=== PATIENT | male | born 1950 | race Two or more races ===

== ENCOUNTER 2019-05-07 01:07 | Inpatient (IN) | payer MEDICARE ==
[~2019-05-07] VITALS: Ht 162.6 cm; Wt 70.9 kg
[2019-05-07] MEDS ORDERED: IV 1/2NS 1000 ML 1,000 ML IV PRN (01:13)
--- NOTE | 2019-05-07 01:15 | NUR ---
CLINICAL MARKETING MANAGER NOTE PT ARRIVED TO FLOOR VIA GURNEY ACCOMPANIED BY AMBULANCE STAFF. PT IN STABLE CONDITION A/O X3. NO SIGNS OF SOB OR DISTRESS, PT STATES CP ONLY WHEN HE COUGHS. IV IN R HAND #[address] ALL CURRENT NEEDS ATTENDED TO. BED LOW, LOCKED, UPPER RAILS UP, AND CALL LIGHT WITHIN REACH. WILL CONT. TO MONITOR. BODY ASSESSED, AND BELONGINGS ACCOUNTED AND SIGNED FOR. NIDIA FINN NOTIFIED OF PT ARRIVAL.
[2019-05-07] MEDS ORDERED: CAPT25TA3 PO (01:28)
[2019-05-07] MEDS ORDERED: AMLO5TAB4 PO (01:28)
[2019-05-07] MEDS ORDERED: MORPHINE SULFATE INJ 2 MG/ML DISP.SYRIN IV PRN (01:30)
[2019-05-07] MEDS ORDERED: HYDROCODONE/APAP 5/325MG 1 EACH TABLET PO PRN (01:30)
[2019-05-07] MEDS ORDERED: MAG HYDROX/AL HYDROX/SIMETH 30 ML UDC PO PRN (01:30)
[2019-05-07] MEDS ORDERED: Z GUARD REMEDY 2 OZ OINT TP PRN (01:30)
[2019-05-07] MEDS ORDERED: CLONIDINE HCL 0.1 MG TABLET PO PRN (01:30)
[2019-05-07] MEDS ORDERED: ZOLPIDEM TARTRATE 5 MG TABLET PO PRN (01:30)
[2019-05-07] MEDS ORDERED: MAGNESIUM HYDROXIDE 30 ML UDC PO PRN (01:30)
[2019-05-07] MEDS ORDERED: ONDANSETRON HCL/PF 4 MG/2 ML VIAL IVP PRN (01:30)
[2019-05-07] MEDS ORDERED: NITROGLYCERIN 0.4 MG/TAB BOTTLE SL PRN (01:30)
[2019-05-07 02:00] VITALS: BP 136/68
[2019-05-07 03:40] VITALS: BP_SYST 115; BP_SYST 144; BP_DIAS 71; BP_DIAS 88
[2019-05-07 05:50] LABS: APPEARANCE,URINE CLEAR (CLEAR); BILIRUBIN,URINE NEGATIVE (NEGATIVE); BLOOD, URINE TRACE-INTA Ery/uL (NEGATIVE); COLOR,URINE YELLOW (YELLOW); KETONES,URINE NEGATIVE (NEGATIVE); LEUKOCYTE ESTERASE ,URINE NEGATIVE (NEGATIVE); NITRITE, URINE NEGATIVE (NEGATIVE); PROTEIN,URINE 100 mg/dl (NEGATIVE); UGLUCOSE NEGATIVE (NEGATIVE); UROBILINOGEN,URINE 0.2 EU/dL (0.2)
[2019-05-07 06:06] LABS: BACTERIA,URINE Rare /HPF (None Seen); SQUAMOUS EPITHELIAL CELL,UR Rare /HPF (None Seen); WBC,URINE 0-2 /HPF (0-3)
[2019-05-07 06:22] LABS: BASOPHILS # (AUTO) 0.2 /CMM (0.0-0.2); BASOPHILS % (AUTO) 1.8 % (0.0-2.0); EOSINOPHILS % (AUTO) 9.7 % (0.0-6.0); HEMATOCRIT 39 % (39-51); HEMOGLOBIN 12.8 g/dL (13.5-17.5); LYMPHOCYTES # (AUTO) 1.3 /CMM (0.8-4.8); MEAN CORPUSCULAR HGB CONC 33 g/dl (31.0-36.0); MEAN CORPUSCULAR VOLUME 89 fL (80-96); MONOCYTES # (AUTO) 0.6 /CMM (0.1-1.30); MONOCYTES % (AUTO) 6.6 % (2.0-12.0); NEUTROPHILS # (AUTO) 6.2 /CMM (1.8-8.9); NEUTROPHILS % (AUTO) 67.9 % (43.0-81.0); PLATELET COUNT (AUTO) 372 /CMM (150-450); RED BLOOD CELL COUNT(AUTO) 4.37 MIL/uL (4.5-6.0); WHITE BLOOD COUNT (AUTO) 9.2 K/uL (4.3-11.0)
--- NOTE | 2019-05-07 06:27 | NUR ---
POCKETS AND PIECES NECKTIE OPERATOR NOTE PT REMAINS IN STABLE CONDITION A/O X3. NO SIGNS OF SOB OR DISTRESS, NO CP NOTED. IV IN R HAND #[address] TELE MONITOR: ST 103. ALL CURRENT NEEDS ATTENDED TO. BED LOW, LOCKED, UPPER RAILS UP, AND CALL LIGHT WITHIN REACH. WILL CONT. TO MONITOR AND ENDORSE TO NEXT SHIFT FOR ARASH.
[2019-05-07 06:46] LABS: ALBUMIN 2.5 g/dL (3.4-5.0); BILIRUBIN,DIRECT 0.1 mg/dL (0.0-0.2); BILIRUBIN,TOTAL 0.4 mg/dL (0.2-1.0); CALCIUM, SERUM 9.3 mg/dL (8.5-10.1); CREATININE 1.3 mg/dL (0.6-1.3); MAGNESIUM 1.6 mg/dL (1.8-2.4); PHOSPHORUS 3.7 mg/dL (2.5-4.9); POTASSIUM 4.1 mmol/L (3.5-5.1); TOTAL PROTEIN, SERUM 7.3 g/dL (6.4-8.2)
[2019-05-07 06:53] LABS: THYROID STIMULATING HORMONE 0.924 uIU/mL (0.358-3.74)
--- NOTE | 2019-05-07 07:24 | NUR ---
CIPHER EXPERT NOTES PATIENT CURRENTLY RESTING IN BED IN STABLE CONDITION WITH NO SIGNS OF DISTRESS. CURRENTLY NO COMPLAINTS OF PAIN. PATIENT IS ABLE TO ANSWER QUESTIONS AND FOLLOW COMMANDS. SR 101. SAFETY PRECAUTIONS IN PLACE WITH BED ALARM ON, LOWEST POSITION, AND SIDE RAILS UP x2 WITH CALL LIGHT WITHIN REACH. IV LOCATED ON R HAND #20. WILL CONTINUE TO MONITOR.
[2019-05-07 08:00] VITALS: BP 163/101
[2019-05-07] MEDS ORDERED: IV NS 0.9% 1,000 ML IV PRN (08:21)
[2019-05-07] MEDS: ASPIRIN 81 MG TAB.CHEW PO SCH (08:38)
[2019-05-07] MEDS: PANTOPRAZOLE 40 MG TABLET.DR PO SCH (08:39)
[2019-05-07] MEDS: ATORVASTATIN 40 MG TABLET PO SCH (08:39)
[2019-05-07] MEDS ORDERED: CAPTOPRIL 25 MG TABLET PO SCH (09:00)
[2019-05-07] MEDS ORDERED: AMLODIPINE BESYLATE 5 MG TABLET PO SCH (09:00)
[2019-05-07 09:11] LABS: THYROID STIMULATING HORMONE 0.918 uIU/mL (0.358-3.74)
[2019-05-07] MEDS ORDERED: IV NS 0.9% 250 ML IV ONE (10:30)
[2019-05-07] MEDS ORDERED: CT SWABBABLE VALVE TRANS SET 1 EA INFUS.SET MC ONE (10:30)
[2019-05-07] MEDS ORDERED: IOHEXOL-350 100 ML VIAL IV ONE (10:30)
[2019-05-07] MEDS ORDERED: METOPROLOL TARTRATE INJ 5 MG/5 ML AMPUL ONE ×3 (10:49→11:31)
[2019-05-07] MEDS: METOPROLOL TARTRATE INJ 5 MG/5 ML AMPUL IVP PRN ×8 (10:55→11:30)
[2019-05-07] MEDS: Magnesium 1GM/D5W 100ML PREMIX 100 ML IV SCH ×2 (10:55→12:27)
[2019-05-07] MEDS ORDERED: NITROGLYCERIN 0.4 MG/TAB BOTTLE SL ONE (11:00)
[2019-05-07] MEDS ORDERED: NITROGLYCERIN 0.4 MG/TAB BOTTLE ONE (11:32)
[2019-05-07] MEDS: METOPROLOL TARTRATE 50 MG TABLET PO SCH ×2 (12:00→17:03)
--- NOTE | 2019-05-07 12:11 | NUR ---
M/S RN NOTES PATIENT RETURNED VIA WHEELCHAIR FROM CT [facility] . CURRENTLY RESTING IN BED.
[2019-05-07] MEDS ORDERED: DEXTROSE 50%-WATER 50 ML DISP.SYRIN IV PRN (14:00)
[2019-05-07] MEDS ORDERED: FUROSEMIDE 20 MG/2 ML VIAL IV SCH (14:00)
[2019-05-07] MEDS: ALBUTEROL HALF STRENGTH 1.25 MG/3 ML VIAL.NEB NEB SCH ×2 (14:46→19:14)
[2019-05-07] MEDS: LEVOFLOXACIN 750 MG /D5W 150ML 750 MG in PREMIX 1 EA IV SCH (15:17)
[2019-05-07 16:00] VITALS: BP 88/56
--- NOTE | 2019-05-07 16:32 | NUR ---
M/S RN NOTES PATIENT NOTED WITH MILD SHORTNESS OF BREATH. PUT HEAD OF BED UP AND ADMINISTERED PRN 2L O2 NC. O2 SAT NOTED AT 98%. WILL CONTINUE TO MONITOR.
--- NOTE | 2019-05-07 17:05 | NUR ---
M/S RN NOTES FOLLOWED UP WITH RADIOLOGY ABOUT CTA OF HEAD, WAS TOLD PATIENT WILL GO IN LATER FOR SCAN. WILL BE INFORMED BEFORE THEY PICK PATIENT UP, EXPECTED TIME [id number].
[2019-05-07] MEDS: BLOOD SUGAR DIAGNOSTIC 1 EACH STRIP VI SCH ×2 (17:13→21:07)
[2019-05-07] MEDS: INSULIN REGULAR, HUMAN 100 UNIT/ML 3 ML VIAL SQ PRN (17:17)
--- NOTE | 2019-05-07 18:31 | NUR ---
M/S RN NOTES PATIENT IS CURRENTLY IN ROOM RESTING IN WITH TWO VISITORS, GRAND KIDS, AND IN STABLE CONDITION. A/O x3. PATIENT FELT MILD SHORTNESS OF BREATH SO CURRENTLY ON 2L O2 NC NEEDED. IV LOCATED ON RIGHT HAND #20, RIGHT AC #20, AND LEFT AC #18. ALL CURRENT NEEDS ATTENDED TO. SAFETY PRECAUTIONS IN PLACE WITH BED IN LOWEST POSITION, BREAKS ON, SIDE RAILS UP x2, AND CALL LIGHT WITHIN REACH. WILL CONTINUE TO MONITOR AND ENDORSE TO ONCOMING SHIFT FOR ARASH.
[2019-05-07 19:59] VITALS: BP 101/70
[2019-05-07] MEDS: ACETAMINOPHEN 325 MG TABLET PO PRN (20:48)
[2019-05-07] MEDS: HEPARIN SODIUM, PORCINE 5000 UNITS/1 ML VIAL SQ SCH (20:48)
[2019-05-08 00:44] VITALS: BP 105/61
[2019-05-08 06:19] LABS: BASOPHILS # (AUTO) 0.1 /CMM (0.0-0.2); BASOPHILS % (AUTO) 1.1 % (0.0-2.0); EOSINOPHILS % (AUTO) 1.1 % (0.0-6.0); HEMATOCRIT 35 % (39-51); HEMOGLOBIN 11.3 g/dL (13.5-17.5); LYMPHOCYTES # (AUTO) 2.2 /CMM (0.8-4.8); LYMPHOCYTES % (AUTO) 25.6 % (20.0-44.0); MEAN CORPUSCULAR HGB CONC 33 g/dl (31.0-36.0); MEAN CORPUSCULAR VOLUME 89 fL (80-96); MONOCYTES # (AUTO) 0.8 /CMM (0.1-1.30); MONOCYTES % (AUTO) 8.8 % (2.0-12.0); NEUTROPHILS # (AUTO) 5.5 /CMM (1.8-8.9); NEUTROPHILS % (AUTO) 63.4 % (43.0-81.0); PLATELET COUNT (AUTO) 328 /CMM (150-450); RED BLOOD CELL COUNT(AUTO) 3.87 MIL/uL (4.5-6.0); WHITE BLOOD COUNT (AUTO) 8.7 K/uL (4.3-11.0)
--- NOTE | 2019-05-08 06:19 | NUR ---
MS RN NOTES AWAKE & RESPONSIVE. NOT IN ANY DISTRESS. NO SOB NOTED. DENIES ANY CP OR ANY DISCOMFORT AT THIS TIME. WITH IV-HL PATENT & INTACT. MONITORED ACCORDINGLY. CALL LIGHT WITHIN REACH. BED IN LOWEST POSITION. SR UP X 2 FOR SAFETY. WILL ENDORSE TO NEXT SHIFT.
[2019-05-08] MEDS: METOPROLOL TARTRATE 50 MG TABLET PO SCH ×5 (06:34→23:31)
[2019-05-08 06:43] LABS: ALBUMIN 2.3 g/dL (3.4-5.0); BILIRUBIN,TOTAL 0.2 mg/dL (0.2-1.0); CREATININE 2.2 mg/dL (0.6-1.3); MAGNESIUM 2.3 mg/dL (1.8-2.4); PHOSPHORUS 5.1 mg/dL (2.5-4.9); POTASSIUM 4.9 mmol/L (3.5-5.1); TOTAL PROTEIN, SERUM 6.6 g/dL (6.4-8.2)
[2019-05-08] MEDS: BLOOD SUGAR DIAGNOSTIC 1 EACH STRIP VI SCH ×4 (06:46→21:55)
[2019-05-08] MEDS: ALBUTEROL HALF STRENGTH 1.25 MG/3 ML VIAL.NEB NEB SCH ×4 (07:45→19:27)
--- NOTE | 2019-05-08 08:00 | NUR ---
M/S RN NOTES PATIENT IS A/O x3. ON 2L O2 NC AT 5L/MIN.DENIES PAIN OR DISTRESS NOTED.IV LOCATED ON RIGHT HAND #20, RIGHT AC #20, AND LEFT AC #18. BRP WITH ASSIST.NO S/S OF HYPO/HYPERGLYCEMIA. FOR CTA BRAIN PROCEDURE.PT REFUSED CARDIAC CATH PROCEDURE.DR BUTTS STATED NO CARDIAC CATH PROCEDURE TO BE DONE TODAY NOT TILL SATURDAY.SAFETY PRECAUTIONS IN PLACE WITH BED IN LOWEST POSITION,SIDE RAILS UP x2, AND CALL LIGHT WITHIN REACH. WILL CONTINUE TO MONITOR.
[2019-05-08 08:16] VITALS: BP 139/74
[2019-05-08] MEDS: IV NS 0.9% 1,000 ML IV PRN ×2 (08:31→20:50)
[2019-05-08] MEDS ORDERED: IOHEXOL-350 100 ML VIAL IV ONE (09:00)
[2019-05-08] MEDS ORDERED: CT SWABBABLE VALVE TRANS SET 1 EA INFUS.SET MC ONE (09:00)
[2019-05-08] MEDS ORDERED: IV NS 0.9% 250 ML IV ONE (09:00)
[2019-05-08] MEDS: ATORVASTATIN 40 MG TABLET PO SCH (09:13)
[2019-05-08] MEDS: ASPIRIN 81 MG TAB.CHEW PO SCH (09:13)
[2019-05-08] MEDS: PANTOPRAZOLE 40 MG TABLET.DR PO SCH (09:13)
[2019-05-08] MEDS: HEPARIN SODIUM, PORCINE 5000 UNITS/1 ML VIAL SQ SCH ×2 (09:19→21:49)
[2019-05-08 11:07] LABS: *SPE A/G RATIO 0.6 (0.7-1.7); *SPE ALBUMIN 2.5 g/dL (2.9-4.4); *SPE ALPHA-1-GLOBULIN 0.3 g/dL (0.0-0.4); *SPE ALPHA-2-GLOBULIN 1.1 g/dL (0.4-1.0); *SPE BETA GLOBULIN 1.3 g/dL (0.7-1.3); *SPE M-SPIKE Not Observed g/dL (Not Observed); *SPEGAMMA GLOBULIN 1.3 g/dL (0.4-1.8)
[2019-05-08] MEDS: INSULIN REGULAR, HUMAN 100 UNIT/ML 3 ML VIAL SQ PRN (13:18)
[2019-05-08] MEDS: LEVOFLOXACIN 750 MG /D5W 150ML 750 MG in PREMIX 1 EA IV SCH (15:14)
[2019-05-08] MEDS: ACETAMINOPHEN 325 MG TABLET PO PRN (17:13)
[2019-05-08 18:47] VITALS: BP 114/63
--- NOTE | 2019-05-08 18:53 | NUR ---
PT RESTING IN BED DENYING SOB IN ROOM AIR.O2 SAT 97%.WITH C/O MILD HEADACHE.TYLENOL 650 MG PO GIVEN WITH EFFECTIVE RESULT.CALL LIGHT PLACED WITHIN REACH. AT THE BEDSIDE.
--- NOTE | 2019-05-08 19:10 | NUR ---
MS RN OPENING NOTES: RECEIVED PATIENT RESTING IN BED, COMFORTABLE, NO SOB, AWAKE A/O X4. COMPLAINED OF HEADACHE STILL, PER FAMILY MEMBER PATIENT JUST TOOK THE MED TYLENOL PO. WILL MONITOR. CALL LIGHT WITHIN REACH. BED IN LOWEST AND LOCKED POSITION.
[2019-05-08 20:00] VITALS: BP 89/56
[2019-05-08 20:32] VITALS: BP 99/63
--- NOTE | 2019-05-08 21:03 | NUR ---
INFORMED EVETTE RYAN FOR SEVERE HEADACH 10/10 THROBBING PAIN ON THE RIGHT SIDE, NOT RELIEVED BY TYLENOL PO. WAITING FOR THE RESPONSE. PATIENT IS AWAKE ALERT AND ORIENTED X4. PATIENT ALSO COMPLAINED OF BLURRY VISION, MD AWARE.
[2019-05-08] MEDS ORDERED: HYDROCODONE/APAP 5/325MG 1 EACH TABLET PO STA (21:16)
[2019-05-08] MEDS ORDERED: HYDROCODONE/APAP 5/325MG 1 EACH TABLET PO SCH (21:30)
[2019-05-08] MEDS ORDERED: HYDROCODONE/APAP 5/325MG 1 EACH TABLET PO PRN (21:30)
--- NOTE | 2019-05-08 21:55 | NUR ---
BLOOD SUGAR FINGERSTICK= 91, NO INSULIN COVERAGE GIVEN. NORCO 5/325 MG PO X1 GIVEN PO FOR HEADACHE 03/10. BED ALARM ON. FAMILY MEMBER AT THE BEDSIDE.
[2019-05-08 23:29] VITALS: BP 91/52
--- NOTE | 2019-05-09 05:56 | NUR ---
PATIENT VOIDED 200ML. ACCORDING TO THE PATIENT HE DID NOT VOID YET SINCE 12NOON YESTERDAY. NO COMPLAIN OF PAIN OR PRESSURE ON THE LOWER ABDOMEN. BLADDER SCANNED=22ML ONLY. URINE SAMPLE COLLECTED AND GIVEN TO THE RESPIRATORY THERAPY TECHNICIAN.
--- NOTE | 2019-05-09 06:00 | NUR ---
MS RN CLOSING NOTES: PATIENT IS RESTING COMFORTABLY IN BED. A/O X4. HEADACHE IS MANAGED WITH NORCO TAB. NO ACUTE EVENTS OVERNIGHT. NO C/O PAIN AT THIS MOMENT. FAMILY MEMBER AT THE BEDSIDE. CALL LIGHT WITHIN REACH. BED ALARM ON. BED IN LOWEST AND LOCKED POSITION.
[2019-05-09 06:14] VITALS: BP 151/87
[2019-05-09] MEDS: METOPROLOL TARTRATE 50 MG TABLET PO SCH ×3 (06:17→18:17)
[2019-05-09 06:24] LABS: BASOPHILS # (AUTO) 0.1 /CMM (0.0-0.2); BASOPHILS % (AUTO) 1.6 % (0.0-2.0); EOSINOPHILS % (AUTO) 2.1 % (0.0-6.0); HEMATOCRIT 34 % (39-51); HEMOGLOBIN 11.2 g/dL (13.5-17.5); LYMPHOCYTES # (AUTO) 2.1 /CMM (0.8-4.8); MEAN CORPUSCULAR HGB CONC 33 g/dl (31.0-36.0); MEAN CORPUSCULAR VOLUME 89 fL (80-96); MONOCYTES # (AUTO) 0.9 /CMM (0.1-1.30); NEUTROPHILS # (AUTO) 6.1 /CMM (1.8-8.9); NEUTROPHILS % (AUTO) 64.3 % (43.0-81.0); PLATELET COUNT (AUTO) 356 /CMM (150-450); WHITE BLOOD COUNT (AUTO) 9.5 K/uL (4.3-11.0)
[2019-05-09 06:35] LABS: APPEARANCE,URINE SL CLOUDY (CLEAR); BILIRUBIN,URINE NEGATIVE (NEGATIVE); BLOOD, URINE TRACE-INTA Ery/uL (NEGATIVE); COLOR,URINE YELLOW (YELLOW); KETONES,URINE NEGATIVE (NEGATIVE); LEUKOCYTE ESTERASE ,URINE NEGATIVE (NEGATIVE); NITRITE, URINE NEGATIVE (NEGATIVE); PROTEIN,URINE 100 mg/dl (NEGATIVE); UGLUCOSE NEGATIVE (NEGATIVE); UROBILINOGEN,URINE 0.2 EU/dL (0.2)
[2019-05-09 06:58] LABS: CREATININE, URINE 117.5 MG/DL (30.0-125.0); URINE TOTAL PROTEIN 210.9 mg/dL (0-11.9)
[2019-05-09 07:02] LABS: ALBUMIN 2.4 g/dL (3.4-5.0); BILIRUBIN,TOTAL 0.2 mg/dL (0.2-1.0); CALCIUM, SERUM 8.6 mg/dL (8.5-10.1); CREATININE 3.2 mg/dL (0.6-1.3); MAGNESIUM 2.2 mg/dL (1.8-2.4); PHOSPHORUS 5.4 mg/dL (2.5-4.9); POTASSIUM 5.5 mmol/L (3.5-5.1); TOTAL PROTEIN, SERUM 6.9 g/dL (6.4-8.2)
[2019-05-09 07:31] LABS: RBC,URINE 0-2 /HPF (0-2); WBC,URINE 0-2 /HPF (0-3)
[2019-05-09 07:32] LABS: BACTERIA,URINE Rare /HPF (None Seen); SQUAMOUS EPITHELIAL CELL,UR Rare /HPF (None Seen)
[2019-05-09] MEDS: ALBUTEROL HALF STRENGTH 1.25 MG/3 ML VIAL.NEB NEB SCH ×4 (07:50→19:23)
[2019-05-09 08:00] VITALS: BP 122/70
--- NOTE | 2019-05-09 08:00 | NUR ---
M/S RN NOTES PATIENT IS A/O x3. NO SOB ON ROOM AIR. DENIES PAIN OR DISTRESS NOTED.IV LOCATED ON RIGHT HAND #20,WITH ONGOING IVF OF NS AT 70 ML/HR INFUSING WELL.WITH RIGHT AC #20, AND LEFT AC #18 INTACT. WITH BRP WITH ASSIST.NO S/S OF HYPO/HYPERGLYCEMIA. FOR CARDIAC CATH PROCEDURE ON SATURDAY.SAFETY PRECAUTIONS IN PLACE WITH BED IN LOWEST POSITION,SIDE RAILS UP x2, AND CALL LIGHT WITHIN REACH. WILL CONTINUE TO MONITOR
[2019-05-09] MEDS: ATORVASTATIN 40 MG TABLET PO SCH (09:50)
[2019-05-09] MEDS: PANTOPRAZOLE 40 MG TABLET.DR PO SCH (09:50)
[2019-05-09] MEDS: ASPIRIN 81 MG TAB.CHEW PO SCH (09:50)
[2019-05-09] MEDS: BLOOD SUGAR DIAGNOSTIC 1 EACH STRIP VI SCH ×4 (09:51→21:17)
[2019-05-09] MEDS: HEPARIN SODIUM, PORCINE 5000 UNITS/1 ML VIAL SQ SCH ×2 (09:52→21:18)
[2019-05-09] MEDS ORDERED: SODIUM POLYSTYRENE SULFONATE 15 G/60 ML BOTTLE PO ONE (10:00)
[2019-05-09 11:24] LABS: EOSINOPHIL,URINE None Seen
[2019-05-09] MEDS: IV NS 0.9% 1,000 ML IV PRN (12:26)
[2019-05-09] MEDS: INSULIN REGULAR, HUMAN 100 UNIT/ML 3 ML VIAL SQ PRN (12:32)
[2019-05-09 14:50] LABS: CALCIUM, SERUM 8.4 mg/dL (8.5-10.1); CREATININE 3.7 mg/dL (0.6-1.3); POTASSIUM 4.7 mmol/L (3.5-5.1)
[2019-05-09] MEDS: LEVOFLOXACIN 750 MG /D5W 150ML 750 MG in PREMIX 1 EA IV SCH (15:01)
[2019-05-09 16:00] VITALS: BP 144/79
--- NOTE | 2019-05-09 19:25 | NUR ---
RN OPEN NOTES RECEIVED PATIENT AWAKE IN BED WITH FAMILY AT BEDSIDE. A/OX4. NO SIGNS OF DISTRESS OR DISCOMFORT. BREATHING EVEN AND UNLABORED. IV ACCESS IN RAC, LAC, AND R HAND WITH NS INFUSING, PATENT AND INTACT, NO SIGNS OF REDNESS OR INFILTRATION. ON TELE MONITORING WITH SR 79 NOTED. BED IN LOW LOCKED POSITION WITH SIDE RAILS X2. CALL LIGHT WITHIN REACH. WILL CONTINUE TO MONITOR.
--- NOTE | 2019-05-09 19:29 | NUR ---
PT RESTING IN BED WITH SON AT THE BEDSIDE.PT DENIES ANY PAIN OR DISTRESS. ON TELE MONITOR WITH SR HR 80.WITH IVF OF NS AT 70 ML/HR INFUSING WELL. CALL LIGHT PLACED WITHIN REACH.
[2019-05-09 20:00] VITALS: BP 139/76
[2019-05-10] VITALS: BP 143/80
[2019-05-10] MEDS: METOPROLOL TARTRATE 50 MG TABLET PO SCH ×5 (00:24→23:12)
[2019-05-10] MEDS: HYDROCODONE/APAP 5/325MG 1 EACH TABLET PO PRN (02:30)
--- NOTE | 2019-05-10 02:30 | NUR ---
RN NOTES ADMINISTERED NORCO 5/325 ORDERED FOR HEADACHE PAIN 03/10, AT PATIENT REQUEST. VSS. WILL CONTINUE TO MONITOR.
[2019-05-10 04:00] VITALS: BP 127/76
[2019-05-10 06:28] LABS: BASOPHILS # (AUTO) 0.1 /CMM (0.0-0.2); BASOPHILS % (AUTO) 1.1 % (0.0-2.0); EOSINOPHILS % (AUTO) 0.6 % (0.0-6.0); HEMATOCRIT 34 % (39-51); HEMOGLOBIN 11.1 g/dL (13.5-17.5); LYMPHOCYTES # (AUTO) 1.5 /CMM (0.8-4.8); LYMPHOCYTES % (AUTO) 16.2 % (20.0-44.0); MEAN CORPUSCULAR HGB CONC 33 g/dl (31.0-36.0); MEAN CORPUSCULAR VOLUME 88 fL (80-96); MONOCYTES # (AUTO) 0.9 /CMM (0.1-1.30); MONOCYTES % (AUTO) 9.7 % (2.0-12.0); NEUTROPHILS # (AUTO) 6.6 /CMM (1.8-8.9); NEUTROPHILS % (AUTO) 72.4 % (43.0-81.0); PLATELET COUNT (AUTO) 332 /CMM (150-450); RED BLOOD CELL COUNT(AUTO) 3.86 MIL/uL (4.5-6.0); WHITE BLOOD COUNT (AUTO) 9.1 K/uL (4.3-11.0)
[2019-05-10] MEDS: BLOOD SUGAR DIAGNOSTIC 1 EACH STRIP VI SCH ×4 (06:28→22:03)
[2019-05-10 06:32] LABS: ALBUMIN 2.3 g/dL (3.4-5.0); BILIRUBIN,TOTAL 0.2 mg/dL (0.2-1.0); CREATININE 4.3 mg/dL (0.6-1.3); PHOSPHORUS 6.3 mg/dL (2.5-4.9); POTASSIUM 4.7 mmol/L (3.5-5.1); TOTAL PROTEIN, SERUM 6.4 g/dL (6.4-8.2)
--- NOTE | 2019-05-10 06:55 | NUR ---
RN CLOSING NOTES PATIENT RESTING IN BED, EASILY AROUSABLE WITH FAMILY AT BEDSIDE. A/OX4. NO SIGNS OF DISTRESS OR DISCOMFORT. BREATHING EVEN AND UNLABORED. IV ACCESS IN RAC, LAC, AND R HAND WITH NS INFUSING, PATENT AND INTACT, NO SIGNS OF REDNESS OR INFILTRATION. ON TELE MONITORING WITH SR 70 NOTED. ALL NEEDS MET. NO SIGNIFICANT CHANGES THROUGH THE NIGHT. BED IN LOW LOCKED POSITION WITH SIDE RAILS X2. CALL LIGHT WITHIN REACH. WILL ENDORSE TO AM SHIFT FOR ARASH.
--- NOTE | 2019-05-10 07:30 | NUR ---
LARD BLEACHER NOTES PT IN BED, ASLEEP, RESPIRATIONS NORMAL AND NOT LABORED, EASILY AROUSABLE, NO COMPLAINT AT THIS TIME, CALL LIGHT WITHIN REACH, FAMILY AT BEDSIDE.
[2019-05-10] MEDS: ALBUTEROL HALF STRENGTH 1.25 MG/3 ML VIAL.NEB NEB SCH ×4 (07:44→19:07)
[2019-05-10 08:00] VITALS: BP 138/89
[2019-05-10] MEDS: ASPIRIN 81 MG TAB.CHEW PO SCH (08:08)
[2019-05-10] MEDS: PANTOPRAZOLE 40 MG TABLET.DR PO SCH (08:08)
[2019-05-10] MEDS: ATORVASTATIN 40 MG TABLET PO SCH (08:08)
[2019-05-10] MEDS: HEPARIN SODIUM, PORCINE 5000 UNITS/1 ML VIAL SQ SCH ×2 (08:20→21:58)
[2019-05-10] MEDS ORDERED: IV NS 0.9% 500 ML IV PRN (09:00)
[2019-05-10] MEDS ORDERED: NITROGLYCERIN 0.4 MG/TAB BOTTLE SL ONE (09:00)
[2019-05-10] MEDS ORDERED: METOPROLOL TARTRATE INJ 5 MG/5 ML AMPUL IVP ONE (09:00)
[2019-05-10] MEDS: IV NS 0.9% 1,000 ML IV PRN (12:11)
--- NOTE | 2019-05-10 13:00 | NUR ---
RN MS NOTES PT IN BED, AWAKE, ALERT AND ORIENTED, NO COMPLAINT AT THIS TIME, NOT IN DISTRESS, ASSISTED WITH NEEDS, IV FLUIDS INFUSING WELL.
[2019-05-10] MEDS ORDERED: LEVOFLOXACIN (750 MG) 750 MG TABLET PO SCH (15:00)
[2019-05-10 16:00] VITALS: BP 133/64
--- NOTE | 2019-05-10 19:00 | NUR ---
RN MS NOTES PT IN BED, ASLEEP, EASY TO AROUSE, ALERT AND ORIENTED, NO COMPLAINT AT THIS TIME, RESPIRATIONS NORMAL, IV FLUIDS INFUSING WELL, BLOOD SUGAR CHECKED, PM CARE PROVIDED, ALL NEEDS ATTENDED.
--- NOTE | 2019-05-10 19:25 | NUR ---
RN OPEN NOTES RECEIVED PATIENT RESTING IN BED, EASILY AROUSALBE. A/OX4. NO SIGNS OF DISTRESS OR DISCOMFORT. BREATHING EVEN AND UNLABORED. IV ACCESS IN RAC, LAC, AND R HAND WITH NS INFUSING, PATENT AND INTACT, NO SIGNS OF REDNESS OR INFILTRATION. BED IN LOW LOCKED POSITION WITH SIDE RAILS X2. CALL LIGHT WITHIN REACH. WILL CONTINUE TO MONITOR.
[2019-05-10 20:04] VITALS: BP 131/76
[2019-05-11] MEDS: IV NS 0.9% 1,000 ML IV PRN ×2 (02:44→16:21)
[2019-05-11 06:16] LABS: BASOPHILS # (AUTO) 0.1 /CMM (0.0-0.2); HEMATOCRIT 36 % (39-51); HEMOGLOBIN 11.9 g/dL (13.5-17.5); LYMPHOCYTES # (AUTO) 1.3 /CMM (0.8-4.8); LYMPHOCYTES % (AUTO) 16.2 % (20.0-44.0); MEAN CORPUSCULAR HGB CONC 33 g/dl (31.0-36.0); MEAN CORPUSCULAR VOLUME 89 fL (80-96); MONOCYTES # (AUTO) 0.8 /CMM (0.1-1.30); MONOCYTES % (AUTO) 10.2 % (2.0-12.0); NEUTROPHILS # (AUTO) 5.8 /CMM (1.8-8.9); NEUTROPHILS % (AUTO) 71.6 % (43.0-81.0); PLATELET COUNT (AUTO) 345 /CMM (150-450); RED BLOOD CELL COUNT(AUTO) 4.08 MIL/uL (4.5-6.0); WHITE BLOOD COUNT (AUTO) 8.1 K/uL (4.3-11.0)
[2019-05-11] MEDS: METOPROLOL TARTRATE 50 MG TABLET PO SCH ×3 (06:20→18:04)
[2019-05-11] MEDS: HYDROCODONE/APAP 5/325MG 1 EACH TABLET PO PRN (06:21)
[2019-05-11 06:25] LABS: CALCIUM, SERUM 7.7 mg/dL (8.5-10.1); PHOSPHORUS 6.4 mg/dL (2.5-4.9); POTASSIUM 4.5 mmol/L (3.5-5.1)
--- NOTE | 2019-05-11 06:36 | NUR ---
RN CLOSING NOTES PATIENT RESTING IN BED, EASILY AROUSABLE WITH FAMILY AT BEDSIDE. A/OX4. NO SIGNS OF DISTRESS OR DISCOMFORT. BREATHING EVEN AND UNLABORED. IV ACCESS IN RAC, LAC, AND R HAND WITH NS INFUSING, PATENT AND INTACT, NO SIGNS OF REDNESS OR INFILTRATION. ALL NEEDS MET. NO SIGNIFICANT CHANGES THROUGH THE NIGHT. ADMINISTERED NORCO 5/325 FOR 8/10 RIGHT SIDED HEADACHE. BED IN LOW LOCKED POSITION WITH SIDE RAILS X2. CALL LIGHT WITHIN REACH. WILL ENDORSE TO AM SHIFT FOR ARASH.
--- NOTE | 2019-05-11 08:00 | NUR ---
MS RN NOTES PATIENT IN BED RESTING NO SOB OR ACUTE DISTRESS NOTED. PATIENT ALERT, ORIENTED X4. DENIES ANY PAIN. PERINEPHRIAL IV INTACT PATENT RUNNING NS AT 75ML/HR. FAMILY AT BEDSIDE. BED IN LOW LOCKED POSITION, CALL LIGHT WITHIN REACH WILL CONTINUE TO MONITOR.
[2019-05-11 08:05] VITALS: BP_SYST 148; BP_SYST 162; BP_DIAS 78; BP_DIAS 79
[2019-05-11] MEDS: ATORVASTATIN 40 MG TABLET PO SCH (08:12)
[2019-05-11] MEDS: ASPIRIN 81 MG TAB.CHEW PO SCH (08:12)
[2019-05-11] MEDS: LEVOFLOXACIN (500MG) 500 MG TABLET PO SCH (08:12)
[2019-05-11] MEDS: PANTOPRAZOLE 40 MG TABLET.DR PO SCH (08:12)
[2019-05-11] MEDS: HEPARIN SODIUM, PORCINE 5000 UNITS/1 ML VIAL SQ SCH ×2 (08:13→21:17)
[2019-05-11] MEDS: BLOOD SUGAR DIAGNOSTIC 1 EACH STRIP VI SCH ×4 (08:14→21:19)
[2019-05-11] MEDS: ALBUTEROL HALF STRENGTH 1.25 MG/3 ML VIAL.NEB NEB SCH ×4 (08:16→20:26)
[2019-05-11] MEDS ORDERED: POLYVINYL ALCOHOL 15 ML BOTTLE EACHEYE PRN (11:00)
[2019-05-11] MEDS: SEVELAMER CARBONATE 800 MG TABLET PO SCH ×2 (12:28→18:04)
[2019-05-11 15:51] VITALS: BP 151/71
[2019-05-11 16:06] LABS: *SPE A/G RATIO 0.7 (0.7-1.7); *SPE ALBUMIN 2.6 g/dL (2.9-4.4); *SPE ALPHA-1-GLOBULIN 0.3 g/dL (0.0-0.4); *SPE BETA GLOBULIN 1.1 g/dL (0.7-1.3); *SPE GLOBULIN, TOTAL 3.6 g/dL (2.2-3.9); *SPE M-SPIKE Not Observed g/dL (Not Observed); *SPEGAMMA GLOBULIN 1.2 g/dL (0.4-1.8)
--- NOTE | 2019-05-11 18:13 | NUR ---
MS RN NOTES PATIENT IN BED RESTING NO SOB OR ACUTE DISTRESS NOTED. ALL DUE MEDICATION ADMINISTERED, ALL NEEDS MET. NO ACUTE CHANGES NOTED. WILL ENDORSE CARE TO PM SHIFT.
[2019-05-11 20:00] VITALS: BP 128/72
[2019-05-11] MEDS: *INSULIN REGULAR(HUMULIN R)HUM 100 UNIT/ML VIAL SQ PRN ×2 (21:20→21:30)
[2019-05-12] MEDS: METOPROLOL TARTRATE 50 MG TABLET PO SCH ×5 (00:08→23:44)
[2019-05-12] MEDS: IV NS 0.9% 1,000 ML IV PRN ×2 (02:48→13:39)
[2019-05-12 06:24] LABS: APPEARANCE,URINE CLEAR (CLEAR); BILIRUBIN,URINE NEGATIVE (NEGATIVE); BLOOD, URINE TRACE-INTA Ery/uL (NEGATIVE); COLOR,URINE YELLOW (YELLOW); KETONES,URINE NEGATIVE (NEGATIVE); LEUKOCYTE ESTERASE ,URINE NEGATIVE (NEGATIVE); NITRITE, URINE NEGATIVE (NEGATIVE); PH,URINE 5.5 (5.0-8.0); PROTEIN,URINE 100 mg/dl (NEGATIVE); UGLUCOSE 100 MG/DL mg/dL (NEGATIVE); UROBILINOGEN,URINE 0.2 EU/dL (0.2)
[2019-05-12] MEDS: BLOOD SUGAR DIAGNOSTIC 1 EACH STRIP VI SCH ×5 (06:26→21:58)
[2019-05-12 06:36] LABS: BASOPHILS # (AUTO) 0.1 /CMM (0.0-0.2); BASOPHILS % (AUTO) 1.3 % (0.0-2.0); EOSINOPHILS % (AUTO) 1.8 % (0.0-6.0); HEMATOCRIT 34 % (39-51); HEMOGLOBIN 11.4 g/dL (13.5-17.5); LYMPHOCYTES # (AUTO) 1.5 /CMM (0.8-4.8); LYMPHOCYTES % (AUTO) 16.9 % (20.0-44.0); MEAN CORPUSCULAR HGB CONC 33 g/dl (31.0-36.0); MEAN CORPUSCULAR VOLUME 88 fL (80-96); MONOCYTES % (AUTO) 11.9 % (2.0-12.0); NEUTROPHILS # (AUTO) 5.9 /CMM (1.8-8.9); NEUTROPHILS % (AUTO) 68.1 % (43.0-81.0); PLATELET COUNT (AUTO) 351 /CMM (150-450); WHITE BLOOD COUNT (AUTO) 8.6 K/uL (4.3-11.0)
--- NOTE | 2019-05-12 06:39 | NUR ---
RN CLOSING NOTES PATIENT RESTING IN BED, EASILY AROUSABLE WITH FAMILY AT BEDSIDE. A/OX4. NO SIGNS OF DISTRESS OR DISCOMFORT. BREATHING EVEN AND UNLABORED. IV ACCESS IN RAC, LAC, AND R HAND WITH NS INFUSING, PATENT AND INTACT, NO SIGNS OF REDNESS OR INFILTRATION. ALL NEEDS MET. NO SIGNIFICANT CHANGES THROUGH THE NIGHT. BED IN LOW LOCKED POSITION WITH SIDE RAILS X2. CALL LIGHT WITHIN REACH. WILL ENDORSE TO AM SHIFT FOR ARASH.
[2019-05-12 06:41] LABS: ALBUMIN 2.3 g/dL (3.4-5.0); BILIRUBIN,TOTAL 0.2 mg/dL (0.2-1.0); CALCIUM, SERUM 7.9 mg/dL (8.5-10.1); CREATININE 4.3 mg/dL (0.6-1.3); MAGNESIUM 1.8 mg/dL (1.8-2.4); PHOSPHORUS 5.4 mg/dL (2.5-4.9); POTASSIUM 4.4 mmol/L (3.5-5.1); TOTAL PROTEIN, SERUM 6.4 g/dL (6.4-8.2)
[2019-05-12 07:02] LABS: BACTERIA,URINE None seen /HPF (None Seen); SQUAMOUS EPITHELIAL CELL,UR Rare /HPF (None Seen); WBC,URINE 0-2 /HPF (0-3)
[2019-05-12 07:03] LABS: CREATININE, URINE 149.4 MG/DL (30.0-125.0)
[2019-05-12 07:15] LABS: EOSINOPHIL,URINE None Seen
[2019-05-12] MEDS: ALBUTEROL HALF STRENGTH 1.25 MG/3 ML VIAL.NEB NEB SCH ×4 (07:37→19:30)
[2019-05-12 08:00] VITALS: BP 152/82
--- NOTE | 2019-05-12 08:00 | NUR ---
RN NOTES RECEIVED PATIENT IN THE BED A/O X3, NO ACUTE RESPIRATORY DISTRESS, BREATHING UNLABORED. PATIENT WAS COMPLAINING OF PAIN ON LOWER BACK, AND HEADACHE, BUT REFUSED PAIN MEDICATION AT THIS TIME. ADMINISTERED SCHEDULED MEDICATION, INFUSING NS AT RIGHT FA NS @100 ML/HR INTACT, PATENT. V/S TAKEN WNL . PATIENT HAS A EDEMA BILATERAL LOWER LOGS, AND UPPER ARMS. SEEN PATIENT BY PART MAKER Dr GÓMEZ, AND POULTRY FEED SUPERVISOR [facility]. NO NEW ORDERS. CALL LIGHT WITHIN TO REACH.PATIENT USING BATHROOM, NEXT TO THE BED. SAFETY PRECAUTION MAINTAINED ALL THE TIME.
[2019-05-12] MEDS: SEVELAMER CARBONATE 800 MG TABLET PO SCH ×3 (09:59→18:03)
[2019-05-12] MEDS: HYDROCODONE/APAP 5/325MG 1 EACH TABLET PO PRN ×2 (10:00→20:09)
[2019-05-12] MEDS: ATORVASTATIN 40 MG TABLET PO SCH (10:00)
--- NOTE | 2019-05-12 10:00 | NUR ---
rn notes administered narco 5/325 mg po prn for generalized pain 03/10 per pastient request, v/s taken bp 152/82, p-71, r-20, alsob administered scheduled medication, next to the bed continued monitoring.
[2019-05-12] MEDS: PANTOPRAZOLE 40 MG TABLET.DR PO SCH (10:01)
[2019-05-12] MEDS: ASPIRIN 81 MG TAB.CHEW PO SCH (10:01)
[2019-05-12] MEDS: HEPARIN SODIUM, PORCINE 5000 UNITS/1 ML VIAL SQ SCH ×2 (10:07→20:26)
[2019-05-12] MEDS ORDERED: POTASSIUM CHLORIDE 20 MEQ TAB.PRT.SR PO ONE (12:00)
--- NOTE | 2019-05-12 13:00 | NUR ---
RN NOTES BS-128 MG/DL NO COVERAGE GIVEN, BP 156/78, P-68 ADMINISTERED BP SCHEDULED MEDICATION.
[2019-05-12 13:07] LABS: PTH, INTACT 74 pg/mL (15-65)
[2019-05-12] MEDS: ACETAMINOPHEN 325 MG TABLET PO PRN (13:57)
--- NOTE | 2019-05-12 13:57 | NUR ---
RN NOTES ADMINISTERED TYLENOL 650 MG PO PRN FOR HEADACHE, CONTINUED MONITORING.
[2019-05-12 16:00] VITALS: BP 157/78
--- NOTE | 2019-05-12 17:00 | NUR ---
RN NOTES bs-166 mg/dl, no coverage given, administered scheduled medication, medication were administered for pain effective. patient state he wanted to got home today. Encouraged to talk to the traffic expert abiout safety go randi tomoeeow. family next to the bed, call light within to reach. continued monitoring.
--- NOTE | 2019-05-12 18:00 | NUR ---
RN NOTES PATIENT RESTING IN THE BED AT THIS TIME, NO ACUTE RESPIRATORY DISTRESS, INFUSING NS AT 100 ML/HR ON RIGHT FA INTACT. PATIENT USING BATHROOM. CALL LIGHT WITHIN TO REACH. ENDORSED ONCOMING NURSE FOLLOW PLAN OF CARE.
--- NOTE | 2019-05-12 19:15 | NUR ---
rn notes/assessment: pt in bed, awake, a/o x3 tagalog speaking. met with at bed side. pt stated he's not able to rest well, unable to eat, because he has no appetite. iv access patent and flushing well, infusing with ns at 100ml/hr. pt noted to have periodic episode of dry cough. ble and bue edema +2. urinal within reach. discussed plan of care tonight. safety precautions for fall initiated, call light in reach, will continue monitoring pt.
[2019-05-12 20:00] VITALS: BP 160/80
--- NOTE | 2019-05-12 20:09 | NUR ---
PRN NORCO: PT C/O TERRIBLE HEAD ACHE, REQUESTING FOR PAIN MEDICATION. PS 01/07, PRN NORCO ADMINISTERED AT THIS TIME, WILL CONTINUE TO MONITOR AND REASSESS PT.
[2019-05-12 20:22] VITALS: BP 160/80
--- NOTE | 2019-05-12 20:30 | NUR ---
rn notes: recheck blood glucose. pt poor oral intake 25% max, c/o head ache,. not feeling well. result is 128. will monitor for any s/s of hypoglycemia.
[2019-05-12] MEDS: *INSULIN REGULAR(HUMULIN R)HUM 100 UNIT/ML VIAL SQ PRN (21:59)
--- NOTE | 2019-05-12 22:00 | NUR ---
rn notes: pt sleeping, unable to recheck bp at this time, per his havent sleep since admission, and been complaining of head ache and uneasiness, per to just let the rest for now. education provided to s/o regarding bp monitoring. will recheck bp in an hour.
[2019-05-12 23:42] VITALS: BP 177/91
[2019-05-13 01:19] VITALS: BP 157/87
[2019-05-13 01:21] VITALS: BP 157/87
--- NOTE | 2019-05-13 04:16 | NUR ---
RN NOTES: REINSERTED NEW IV ACCESS ON RIGTH WRIST USING G20, WITH GOOD BLOOD RETURN NOTED. PROPER LABELS ATTACHED, TRANSPARENT FILM DRESSING APPLIED.
[2019-05-13 05:29] VITALS: BP 159/95
[2019-05-13] MEDS: BLOOD SUGAR DIAGNOSTIC 1 EACH STRIP VI SCH ×2 (05:36→12:28)
[2019-05-13] MEDS: METOPROLOL TARTRATE 50 MG TABLET PO SCH (05:36)
[2019-05-13] MEDS: INSULIN REGULAR, HUMAN 100 UNIT/ML 3 ML VIAL SQ PRN (05:37)
--- NOTE | 2019-05-13 05:37 | NUR ---
RN NOTES: PT REQUESTED TO HAVE HIS BLOOD GLUCOSE CHECK AT THIS TIME, HE STATED HE WOULD LIKE TO DRINK COFFEE NOW. BLOOD GLUCOSE CHECK RESULT IS 128
--- NOTE | 2019-05-13 06:12 | NUR ---
RN CLOSING NOTES: PT IN BED, REMAINS WITH WEAK NON PRODUCTIVE COUGH, IV ACCESS REMAINS PATENT AND FLUSHING WELL, ON HL. ARMS AND LEGS REMAINS WITH PITTING EDEMA. PT REMAINS WITH POOR ORAL INTAKE. AT BED SIDE. VS REMAINS STABLE, REMAINS AFEBRILE. SAFETY PRECAUTIONS FOR FALL REMAINS ENGAGED, CALL LIGHT IN REACH, ENDORSED TO ANGI PANDEY FOR CONTINUITY OF CARE.
--- NOTE | 2019-05-13 07:10 | NUR ---
MS RN NOTES RECIVED PATIENT SITTING IN BED A/OX4 , AT BEDSIDE. PATIENT IS COMPLAINING OF HEADACHE 8-9. ON ROOM AIR. WHITEWATER PROVIDED FOR HEADACHE 9. BED AT LOWEST POSITION LOCKED, CALL LIGHT WITHIN REACH. WILL CONTINUE TO MONITOR FOR PAIN.
[2019-05-13 07:45] LABS: BASOPHILS # (AUTO) 0.1 /CMM (0.0-0.2); BASOPHILS % (AUTO) 0.9 % (0.0-2.0); EOSINOPHILS % (AUTO) 1.4 % (0.0-6.0); HEMATOCRIT 38 % (39-51); HEMOGLOBIN 12.5 g/dL (13.5-17.5); LYMPHOCYTES # (AUTO) 1.3 /CMM (0.8-4.8); LYMPHOCYTES % (AUTO) 12.6 % (20.0-44.0); MEAN CORPUSCULAR HGB CONC 33 g/dl (31.0-36.0); MEAN CORPUSCULAR VOLUME 90 fL (80-96); MONOCYTES # (AUTO) 0.9 /CMM (0.1-1.30); MONOCYTES % (AUTO) 9.3 % (2.0-12.0); NEUTROPHILS # (AUTO) 7.6 /CMM (1.8-8.9); NEUTROPHILS % (AUTO) 75.8 % (43.0-81.0); PLATELET COUNT (AUTO) 355 /CMM (150-450); RED BLOOD CELL COUNT(AUTO) 4.25 MIL/uL (4.5-6.0); WHITE BLOOD COUNT (AUTO) 10.1 K/uL (4.3-11.0)
[2019-05-13 07:55] LABS: CALCIUM, SERUM 7.9 mg/dL (8.5-10.1); CREATININE 2.7 mg/dL (0.6-1.3); MAGNESIUM 1.6 mg/dL (1.8-2.4); PHOSPHORUS 3.6 mg/dL (2.5-4.9)
[2019-05-13 08:00] VITALS: BP 151/77
[2019-05-13] MEDS: ALBUTEROL HALF STRENGTH 1.25 MG/3 ML VIAL.NEB NEB SCH ×2 (08:00→11:30)
[2019-05-13] MEDS: SEVELAMER CARBONATE 800 MG TABLET PO SCH (08:24)
[2019-05-13] MEDS ORDERED: hydrALAZINE HCL 50 MG TABLET PO SCH (09:00)
[2019-05-13] MEDS ORDERED: NITROGLYCERIN 30 GM TUBE TP SCH (09:00)
[2019-05-13] MEDS: HYDROCODONE/APAP 5/325MG 1 EACH TABLET PO PRN (09:14)
[2019-05-13] MEDS: LEVOFLOXACIN (500MG) 500 MG TABLET PO SCH (09:27)
[2019-05-13] MEDS: ASPIRIN 81 MG TAB.CHEW PO SCH (09:27)
[2019-05-13] MEDS: PANTOPRAZOLE 40 MG TABLET.DR PO SCH (09:27)
[2019-05-13] MEDS: ATORVASTATIN 40 MG TABLET PO SCH (09:27)
--- NOTE | 2019-05-13 09:30 | NUR ---
MS RN NOTES CALLED PHARMACY FOR NITRO PATCH, WAS NOT AVAILABLE IN THE PATIENT`S CASSETTE.
[2019-05-13] MEDS: HEPARIN SODIUM, PORCINE 5000 UNITS/1 ML VIAL SQ SCH (09:49)
[2019-05-13 11:24] VITALS: BP 119/70
--- NOTE | 2019-05-13 12:28 | NUR ---
MS RN NOTES PATIENT IS LEAVING AMA DESPITE THE CONSULTATION WITH DR. CARSON PALMER . AMA FORM SIGNED BY PATIENT. SON AND AT BED SIDE.
--- NOTE | 2019-05-13 12:49 | NUR ---
MS RN NOTES PATIENT LEFT THE UNIT AMA. MEDICATION, LAB AND XRAY RESULT PROVIDED. INFORMED THE SON TO MAKE AN APPOINTMENT WITH DR. BOSE CUSTOMER MANAGEMENT SPECIALIST, INFORMATION PROVIDED.
[2019-05-13] MEDS ORDERED: MAGNESIUM OXIDE 400 MG TABLET PO SCH (17:00)
== END 2019-05-13 12:41 | disposition left against medical advice (07) | DRG 682 ==
LOC: TELE 01:07 → MED 09:17 → TELE 05-09 21:14 → MED 05-10 11:48
PROVIDERS: ADMIT Hospitalist; ATTEND Hospitalist
DX: N17.0 Acute kidney failure with tubular necrosis (principal); J15.9 Unspecified bacterial pneumonia; E43 Unspecified severe protein-calorie malnutrition; I50.33 Acute on chronic diastolic (congestive) heart failure; E87.1 Hypo-osmolality and hyponatremia; I11.0 Hypertensive heart disease with heart failure; E83.42 Hypomagnesemia; E78.5 Hyperlipidemia, unspecified; E87.5 Hyperkalemia; E11.36 Type 2 diabetes mellitus with diabetic cataract; Z91.19 Patient's noncompliance with other medical treatment and regimen; Z68.26 Body mass index [BMI] 26.0-26.9, adult; I25.10 Atherosclerotic heart disease of native coronary artery without angina pectoris; Z79.84 Long term (current) use of oral hypoglycemic drugs; T50.8X5A Adverse effect of diagnostic agents, initial encounter; Y92.009 Unspecified place in unspecified non-institutional (private) residence as the place of occurrence of the external cause; N14.1 Nephropathy induced by other drugs, medicaments and biological substances; R07.81 Pleurodynia
CPT/HCPCS: 36415; 70496-TC; 71045-TC; 75574; 76770-TC; 80048-TC; 80053-TC; 80061-TC; 80076-TC; 81000-TC; 82550-TC; 82570-TC; 82962-TC; 83735-TC; 83880; 83970; 84100-TC; 84155; 84155-TC; 84165; 84300-TC; 84439-TC; 84443-TC; 84484-TC; 85025-TC; 87081-TC; 93307-TC; 94762-TC; 94799-TC; A4216; G0378; J1644; J1815; J1940; J1956; J3475; J3490; J7030; J7050; Q9967